=== PATIENT | male | born 1975 | race Caucasian/White ===

== ENCOUNTER 2017-06-16 15:11 | Emergency (ER) | payer OTHER ==
[~2017-06-16] VITALS: Wt 90.7 kg
[~2017-06-16 15:11] MED LIST: CLINDAMYCIN HC300 MG PO; HYDROCODONE BIT1 T11 PO; ULTRAM50 MG PO
[2017-06-16] MEDS ORDERED: CLINDAMYCIN HC300 MG PO (15:30)
[2017-06-16] MEDS ORDERED: ANAPROX DS550 MG PO (16:37)
== END 2017-06-16 15:49 | disposition home or self-care (01) ==
LOC: ED 15:11
DX: L03.113 Cellulitis of right upper limb (principal); F17.200 Nicotine dependence, unspecified, uncomplicated; Z88.0 Allergy status to penicillin

== ENCOUNTER → 2017-06-20 | Outpatient (CLI) | payer OTHER ==
[~2017-06-20] MED LIST changes: +ANAPROX DS550 MG PO
== END | disposition home or self-care (01) ==
LOC: WOUNDCARE 00:44
DX: S51.001A Unspecified open wound of right elbow, initial encounter (principal); L02.413 Cutaneous abscess of right upper limb; F17.210 Nicotine dependence, cigarettes, uncomplicated; Z72.89 Other problems related to lifestyle; X58.XXXA Exposure to other specified factors, initial encounter; Y93.89 Activity, other specified; Y92.89 Other specified places as the place of occurrence of the external cause; Y99.8 Other external cause status

== ENCOUNTER 2017-09-21 23:36 | Emergency (ER) | payer OTHER ==
[~2017-09-21] VITALS: Ht 175.2 cm; Wt 90.7 kg
--- NOTE | ~2017-09-21 | EKG ---
[place], [place] ELECTROCARDIOGRAM REPORT NAME: JOSE BRYAN UNIT #: [id number] ROOM: DOCTOR: GENE ROSAS MD BIRTHDATE: [birth year] DOS: 09/22/2017 TIME: 0003 hours. FINDINGS: 1. Normal sinus rhythm at 100 beats per minute. 2. Mild intraventricular conduction defect. 3. An abnormal ECG. 4. No previous tracing is available for comparison. GENE ROSAS MD CM:EKGRPT:ELECTROCARDIOGRAM REPORT [id number] GENE ROSAS MD
[2017-09-22 00:05] LABS: BASO # 0.1 10*3/uL (0.0-0.1); BASO % 0.6 % (0.0-1.0); EOS # 0.2 10*3/uL (0.0-0.4); EOS % 2.5 % (1.0-4.0); HEMATOCRIT 41.8 % (42.0-52.0); HEMOGLOBIN 13.9 g/dl (14.0-18.0); LYMPH # 2.9 10*3/uL (1.3-4.4); LYMPH % 33.8 % (27.0-41.0); MEAN CELL VOLUME 87.6 fl (80.0-94.0); MEAN CORPUSCULAR HGB 29.1 pg (27.0-31.0); MEAN CORPUSCULAR HGB CONC 33.3 g/dl (33.0-37.0); MEAN PLATELET VOLUME 9.8 fl (9.6-12.3); MONO # 0.8 10*3/uL (0.1-1.0); MONO % 9.8 % (3.0-9.0); NEUT # 4.5 10*3/uL (2.3-7.9); NEUT % 52.9 % (47.0-73.0); PLATELET COUNT AUTOMATED 205 10*3/uL (130-400); RED BLOOD COUNT 4.77 10*6/uL (4.50-5.90); RED CELL DISTRI WIDTH 13.2 % (0-14.5); WHITE BLOOD COUNT 8.5 10*3/uL (4.8-10.8)
[2017-09-22 00:21] LABS: ALBUMIN 3.9 gm/dl (3.1-4.5); ALKALINE PHOSPHATASE 58 U/L (45-117); BUN 27 mg/dl (7-24); CHLORIDE 108 mmol/L (98-107); CREATININE 1.23 mg/dL (0.70-1.30); POTASSIUM 3.8 mmol/L (3.5-5.1); SGOT/AST 40 IU/L (3-35); SGPT/ALT 61 U/L (12-78); SODIUM 140 mmol/L (136-145); TOTAL PROTEIN 7.3 gm/dL (6.4-8.2)
[2017-09-22 00:22] LABS: TROPONIN I < 0.015 ng/ml (<0.045)
[2017-09-22 01:49] LABS: URINE AMPHETAMINES > 1000 (1000ng/ml); URINE BARBITURATES < 200 (200ng/ml); URINE BENZODIAZEPINES < 200 (200ng/ml); URINE CANNABINOIDS (THC) < 50 (50ng/ml); URINE COCAINE > 300 (300ng/ml); URINE METHADONE < 300 (300ng/ml); URINE OPIATES < 300 (300ng/ml)
[2017-09-22 01:50] LABS: URINE PHENCYCLIDINE < 25 (25ng/ml)
== END 2017-09-22 03:10 | disposition home or self-care (01) ==
LOC: ED 23:36
PROVIDERS: Emergency Medicine
DX: T40.5X1A Poisoning by cocaine, accidental (unintentional), initial encounter (principal); Z88.0 Allergy status to penicillin; Y92.9 Unspecified place or not applicable

== ENCOUNTER → 2019-01-14 | Outpatient (CLI) | payer OTHER ==
[~2019-01-14] MED LIST changes: +IBU800 MG PO; +KETOROLAC10 MG PO; +MEDROL DOSEPAK4 MG PO; +NORCO 5-325 TA1 EACH PO; +TYLENOL325 M1 PO; +ZOFRAN4 MG PO
== END | disposition home or self-care (01) ==
LOC: ORTHO 01:51
DX: S62.316A Displaced fracture of base of fifth metacarpal bone, right hand, initial encounter for closed fracture (principal); F17.200 Nicotine dependence, unspecified, uncomplicated; X58.XXXA Exposure to other specified factors, initial encounter; Y93.89 Activity, other specified; Y92.89 Other specified places as the place of occurrence of the external cause; Y99.8 Other external cause status

== ENCOUNTER → 2019-01-15 | Day surgery (SDC) | payer OTHER ==
[2019-01-14 14:47] LABS: BASO % 0.5 % (0.0-1.0); EOS # 0.1 10*3/uL (0.0-0.4); EOS % 0.7 % (1.0-4.0); HEMATOCRIT 46.2 % (42.0-52.0); HEMOGLOBIN 15.1 g/dl (14.0-18.0); LYMPH % 35.6 % (27.0-41.0); MEAN CELL VOLUME 89.4 fl (80.0-94.0); MEAN CORPUSCULAR HGB 29.2 pg (27.0-31.0); MEAN CORPUSCULAR HGB CONC 32.7 g/dl (33.0-37.0); MEAN PLATELET VOLUME 10.1 fl (9.6-12.3); MONO # 0.6 10*3/uL (0.1-1.0); MONO % 7.3 % (3.0-9.0); NEUT # 4.7 10*3/uL (2.3-7.9); NEUT % 55.5 % (47.0-73.0); PLATELET COUNT AUTOMATED 263 10*3/uL (130-400); RED BLOOD COUNT 5.17 10*6/uL (4.50-5.90); RED CELL DISTRI WIDTH 13.6 % (0-14.5); WHITE BLOOD COUNT 8.4 10*3/uL (4.8-10.8)
[2019-01-14 14:48] LABS: BILIRUBIN NEGATIVE (NEGATIVE); BLOOD NEGATIVE (NEGATIVE); CLARITY CLEAR (CLEAR); COLOR YELLOW (YELLOW); GLUCOSE NEGATIVE (NEGATIVE); KETONE NEGATIVE (NEGATIVE); LEUKO ESTERASE NEGATIVE (NEGATIVE); NITRITE NEGATIVE (NEGATIVE); SPECIFIC GRAVITY >= 1.030 (1.005-1.030); UROBILINOGEN 0.2 E.U./dl (0.2-1.0)
[2019-01-14 15:02] LABS: BACTERIA TRACE; MUCOUS 2+; WBC 21-30 wbc/hpf (0-5)
[2019-01-14 15:13] LABS: BUN 10 mg/dl (7-24); CHLORIDE 106 mmol/L (98-107); CREATININE 0.92 mg/dL (0.70-1.30); POTASSIUM 3.6 mmol/L (3.5-5.1); SODIUM 141 mmol/L (136-145)
[2019-01-15] VITALS (10 sets, daily range): BP systolic 138–179; BP diastolic 84–114
[~2019-01-15] VITALS: Ht 1798 cm; Wt 81.6 kg
--- NOTE | ~2019-01-15 | O ---
[place], [place] OPERATIVE NOTE NAME: JOSE BRYAN [facility] #: [id number] UNIT #: [id number] ROOM: DOCTOR: ELLIOT SOTO DO BIRTHDATE: [birth year] DOS: 01/15/2019 PREOPERATIVE DIAGNOSIS: Right fifth metacarpal base fracture, displaced. POSTOPERATIVE DIAGNOSIS: Right fifth metacarpal base fracture, displaced. OPERATIVE PROCEDURE: Open reduction and internal fixation of right fifth metacarpal fracture. SURGEON: Elliot Soto DO DIRECTOR SALES [employer] MARKETING: [place]. ANESTHESIA: LAZARUS Viramontes, general endotracheal. INDICATIONS: The patient is a 43-year-old male with a history of an injury to the right hand on 12/29/2018. The patient did not seek orthopedic treatment until yesterday. The risks and benefits of the procedure were explained to the patient preoperatively. Preoperative labs and x-rays were obtained. The patient was noted to have a displaced fracture of the proximal 5th metacarpal. DESCRIPTION OF THE PROCEDURE: The right hand was marked in the holding room. The patient was brought to the operative suite. A general anesthetic with endotracheal intubation was performed. The timeout was performed. The right upper extremity was prepped and draped in the usual orthopedic fashion. The patient received clindamycin 900 mg IV piggyback. C-arm was utilized to evaluate the fracture site and the plate was laid across the skin to evaluate the appropriate size. The incision was marked with a longitudinal incision along the fifth ray. Extremity was exsanguinated and the tourniquet was inflated to 250 mmHg. Incision was made sharply with a scalpel. Subcutaneous tissue was spread under loupe magnification. The nerve was identified and protected. There was noted to be excessive fibrous tissue above the fracture site. This was removed using a [place] blade and rongeur. The edges of the fracture site were cleared of any further fibrous tissue. The area was irrigated with normal saline. The reduction was performed. The Synthes 7.2 hand plate was put into place. Position was evaluated under C-arm. This was held with a bone holding clamp. This was found to be adequate. The rotation of the digit was evaluated. The screw holes were drilled proximally with two 10 mm locking screws in distally with one 10 mm locking and one 10 mm nonlocking screw. Position was evaluated under C-arm in multiple planes. The hand was taken through a range of motion. There appeared to be no rotational abnormalities. The area was copiously irrigated with normal saline. The wound was closed in a layered fashion with 2-0 Vicryl followed by 4-0 Prolene on the skin. The area was injected with Marcaine 0.5% plain. Wound was covered with Xeroform, 4 x 4s, cast padding and a well-padded volar splint. Tourniquet was released. The anesthetic was reversed. The patient was extubated and taken to the recovery [place], [place] OPERATIVE NOTE NAME: JOSE BRYAN UNIT #: [id number] ROOM: DOCTOR: ELLIOT SOTO DO BIRTHDATE: [birth year] room in satisfactory condition. COUNTS: Sponge and needle count correct. ESTIMATED BLOOD LOSS: None. DRAINS: None. PACKING: None. COMPLICATIONS: None. SPECIMENS: None. FINDINGS: Displaced fracture at the base of the fifth metacarpal right hand with excessive fibrous formation. IMPLANTS: Synthes 2.7 hand plate. This was a 3-hole T-Type plate X49.685. A 2.7 locking crews measuring 10 mm x 3 and 7.2 cortical nonlocking screw measuring 10 mm. ELLIOT SOTO DO CM:OPRECORD:OPERATIVE NOTE [id number] ELLIOT SOTO DO 01/15/19 1002 interface
--- NOTE | ~2019-01-15 | EKG ---
[place], [place] ELECTROCARDIOGRAM REPORT NAME: JOSE BRYAN UNIT #: [id number] ROOM: DOCTOR: SEAMUS DRAFT REPORT BIRTHDATE: [birth year] [facility] Test Date: 2019-01-14 Test Time: 14:16:37 Pat Name: JOSE BRYAN Department: Room: Gender: M Spinner Cap Frame: ILEANA : 1975 Requested By: ELLIOT ARCINIEGA Order Number: [id number] Reading MD: Gary Gallagher Measurements Intervals Cameron Rate: 102 P: 33 DE: 100 QRS: 73 QRSD: 113 T: 27 QT: 351 QTc: 458 Interpretive Statements Sinus tachycardia Probable left ventricular hypertrophy No previous ECG available for comparison Electronically Signed On 01-15-2019 4:19:28 PDT by Gary Gallagher CM:EKGRPT:ELECTROCARDIOGRAM REPORT [id number] ELLIOT JACOBS DRAFT REPORT ELLIOT ARCINIEGA DO
== END | disposition home or self-care (01) ==
LOC: SDC 01-14 13:15
PROVIDERS: Orthopaedic Surgery
DX: S62.316A Displaced fracture of base of fifth metacarpal bone, right hand, initial encounter for closed fracture (principal); F17.210 Nicotine dependence, cigarettes, uncomplicated; X58.XXXA Exposure to other specified factors, initial encounter; Y93.89 Activity, other specified; Y92.89 Other specified places as the place of occurrence of the external cause; Y99.8 Other external cause status

== ENCOUNTER → 2019-01-27 | Outpatient (CLI) | payer OTHER | END | disposition home or self-care (01) | LOC: ORTHO 01:07 | DX: S62.316D Displaced fracture of base of fifth metacarpal bone, right hand, subsequent encounter for fracture with routine healing (principal); M79.89 Other specified soft tissue disorders; X58.XXXD Exposure to other specified factors, subsequent encounter ==

== ENCOUNTER 2020-05-12 09:19 | Emergency (ER) | payer OTHER ==
[~2020-05-12] VITALS: Ht 175.2 cm; Wt 83.0 kg
[2020-05-12] MEDS ORDERED: CLINDAMYCIN HC300 MG PO (09:47)
== END 2020-05-12 10:00 | disposition home or self-care (01) ==
LOC: ED 09:19
DX: L02.415 Cutaneous abscess of right lower limb (principal); Z88.0 Allergy status to penicillin; Z79.899 Other long term (current) drug therapy

== ENCOUNTER 2021-05-25 13:56 | Emergency (ER) | payer OTHER ==
[~2021-05-25] VITALS: Wt 90.7 kg
[2021-05-25 14:58] LABS: BASO # 0.1 10*3/uL (0.0-0.1); BASO % 0.7 % (0.0-1.0); EOS # 0.2 10*3/uL (0.0-0.4); EOS % 2.5 % (1.0-4.0); HEMATOCRIT 45.4 % (42.0-52.0); LYMPH # 2.2 10*3/uL (1.3-4.4); LYMPH % 27.1 % (27.0-41.0); MEAN CORPUSCULAR HGB 29.4 pg (27.0-31.0); MEAN CORPUSCULAR HGB CONC 34.1 g/dl (33.0-37.0); MEAN PLATELET VOLUME 9.7 fl (9.6-12.3); MONO # 0.9 10*3/uL (0.1-1.0); MONO % 10.6 % (3.0-9.0); NEUT # 4.9 10*3/uL (2.3-7.9); NEUT % 58.9 % (47.0-73.0); PLATELET COUNT AUTOMATED 258 10*3/uL (130-400); RED BLOOD COUNT 5.28 10*6/uL (4.50-5.90); RED CELL DISTRI WIDTH 12.7 % (0-14.5); WHITE BLOOD COUNT 8.2 10*3/uL (4.8-10.8)
[2021-05-25 15:14] LABS: ALBUMIN 3.4 gm/dl (3.1-4.5); ALKALINE PHOSPHATASE 68 U/L (45-117); BUN 14 mg/dl (7-24); CHLORIDE 108 mmol/L (98-107); CREATININE 1.02 mg/dL (0.70-1.30); LIPASE 58 U/L (73-393); POTASSIUM 4.1 mmol/L (3.5-5.1); SGOT/AST 58 IU/L (3-35); SGPT/ALT 100 U/L (12-78); SODIUM 138 mmol/L (136-145); TOTAL PROTEIN 7.2 gm/dL (6.4-8.2)
[2021-05-25 15:22] LABS: BILIRUBIN Negative (Negative); BLOOD Negative (Negative); CLARITY Cloudy (Clear); COLOR Dark Yellow (Yellow); GLUCOSE Negative (Negative); KETONE Trace (Negative); LEUKO ESTERASE 1+ (Negative); NITRITE Negative (Negative); PH 5.5 (4.5-8.0)
[2021-05-25 15:30] LABS: BACTERIA 1+; MUCOUS 2+; URINE AMPHETAMINES > 1000 (1000ng/ml); URINE BARBITURATES < 200 (200ng/ml); URINE BENZODIAZEPINES < 200 (200ng/ml); URINE CANNABINOIDS (THC) < 50 (50ng/ml); URINE COCAINE > 300 (300ng/ml); URINE METHADONE < 300 (300ng/ml); URINE OPIATES < 300 (300ng/ml)
[2021-05-25 15:32] LABS: URINE PHENCYCLIDINE < 25 (25ng/ml)
== END 2021-05-25 15:47 | disposition home or self-care (01) ==
LOC: ED 13:56
PROVIDERS: Emergency Medicine
DX: R10.11 Right upper quadrant pain (principal); R10.13 Epigastric pain; R74.01 Elevation of levels of liver transaminase levels; F15.10 Other stimulant abuse, uncomplicated; F14.10 Cocaine abuse, uncomplicated